=== PATIENT | male | born 1975 | race Caucasian/White ===

== ENCOUNTER 2020-04-03 13:53 | Emergency (ER) | payer MEDICAID, OTHER ==
[~2020-04-03] VITALS: Ht 182.9 cm; Wt 117.9 kg
[2020-04-03 20:15] VITALS: BP 113/82
== END 2020-04-03 23:41 | disposition home or self-care (01) ==
LOC: ER 13:53
DX: U07.1 COVID-19 (principal)
CPT/HCPCS: 36415; 71045; 87426

== ENCOUNTER 2024-03-07 13:38 | Emergency (ER) | payer BC, OTHER ==
[~2024-03-07] VITALS: Ht 182.9 cm; Wt 109.0 kg
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
[2024-03-07 14:54] VITALS: BP 153/91; PULSE 90; RESP 18; O2SAT 96
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
[2024-03-07] MEDS ORDERED: IBUP-1456 PO (15:45)
== END 2024-03-07 16:16 | disposition home or self-care (01) ==
LOC: EDSEX 13:38 → ER 13:38 → EDBD 13:38 → ER 16:15
DX: S16.1XXA Strain of muscle, fascia and tendon at neck level, initial encounter (principal); M25.562 Pain in left knee; V49.88XA Car occupant (driver) (passenger) injured in other specified transport accidents, initial encounter; Y93.I9 Activity, other involving external motion; Y92.488 Other paved roadways as the place of occurrence of the external cause; Y99.8 Other external cause status
CPT/HCPCS: 72040